=== PATIENT | female | born 1950 | race Caucasian/White ===

== ENCOUNTER → 2016-06-14 | Day surgery (SDC) | payer OTHER, MEDICARE ==
[2016-06-07 09:29] VITALS: Ht 148.6 cm; Wt 47.7 kg
[~2016-06-14] VITALS: Ht 148.6 cm; Wt 47.7 kg
[~2016-06-14] MED LIST: 500ML BSS 0.3ML EPI 1:1000PF IRRIG ONE; ACET-1256 PO; ACETAMINOPHEN 325 MG TAB PO PRN; AMVISC PLUS 0.8ML SYRINGE INT OCU ONE; ATROPINE SULFATE 0.1 MG/ML 5ML SYR IV PRN; BACL10TA PO; BIOT10TA2 PO; BSS FLUSH ONE; DOCU100C31 PO; ENDOCOAT 0.85ML SYRINGE INT OCU ONE; EpINEphrine INJ 1MG/ML AMP 1 MG/ML AMP ONE; LACTATED RINGER'S 1000ML 500 ML IV SCH; LIDOCAINE 4% OP SOLN DROP CHARGE ONE; LIDOCAINE 4% OP SOLN DROP CHARGE OPL SCH; LIDOCAINE HCL 1% MPF 2 ML VIAL ONE; LOSA1TAB38 PO; MIDAZOLAM HCL 1 MG/ML 2ML VIAL ONE; MIX: 4ML BSS 1ML EPI 1:1000 PF TOP ONE; MOXIFLOXACIN OPH SOLN PER DROP CHARGE ONE; MULT-506 PO; OFLO0.3S OP; OYST500T47 PO; PHENYLEPHRINE HCL 10% OP SOLN 5 ML BTL OPL ONE; POVIDONE-IODINE OP SOLN 30 ML BTL ONE; PRAM0.129 PO; PRED1SUS3 OPL; PRM/45 PO; PROPARACAINE 0.5% OP SOLN PER DROP CHARGE OPL SCH; PROPARACAINE HCL 0.5% OP SOLN 15 ML BTL OPL ONE; ROPI0.25 PO; SENN-61 PO; TOBRAMYCIN/DEXAMETHASONE OPH OINT PER APPLN CHARGE ONE; TRAZ50TA35 PO; [UNRECOGNIZED DRUG - CODE] PO
--- NOTE | 2016-06-14 08:41 | History & Physical Bridge - [place] ---
H&P Re-Evaluation Bridge Note: I have examined the patient, reviewed the History & Physical and in the interval since the performance of the History & Physical I have noted the following changes of clinical significance: No changes noted
[2016-06-14] MEDS: PHENYLEPHRINE HCL 2.5% OP SOLN PER DROP CHARGE OPL SCH ×3 (08:46→08:56)
[2016-06-14] MEDS: TROPICAMIDE 1% OP SOLN PER DROP CHARGE OPL SCH ×3 (08:47→08:57)
[2016-06-14] MEDS: CYCLOPENTOLATE HCL 1% OP SOLN PER DROP CHARGE OPL SCH ×3 (08:48→08:58)
[2016-06-14] MEDS: MOXIFLOXACIN OPH SOLN PER DROP CHARGE OPL SCH ×3 (08:49→08:59)
--- NOTE | 2016-06-14 10:14 | [facility] Post Operative Brief Note ---
Immediate Operative Summary Operative Date Jun 14, 2016. Pre-Operative Diagnosis Cataract Left Eye Post-Operative Diagnosis Same Procedure(s) Performed Left Cataract Phacoemulsification With Intraocular Lens Implant; Toric Lens Surgeon Dr. Palomo Weed Burner Surgeon(s) None Estimated Blood Loss None Findings left cataract Specimens None Complication(s) None Disposition
--- NOTE | 2016-06-14 10:18 | [facility] Operative Report ---
Operative Report Phaco with toric IOL DATE OF OPERATION: 06/14/16 PREOPERATIVE DIAGNOSIS: Senile nuclear cataract and astigmatism, left eye POSTOPERATIVE DIAGNOSIS: Senile nuclear cataract and astigmatism, left eye PROCEDURE PERFORMED: Femtosecond laser-assisted phacoemulsification with toric intraocular lens implantation, left eye SURGEON: Dr. Lewis Palomo ANESTHESIA: Topical with 1% intracameral lidocaine and monitored anesthesia care COMPLICATIONS: None DESCRIPTION OF PROCEDURE: After positively identifying the patient both verbally and by wristband in the preoperative area, the left eye was marked as the operative eye. Using a sterile marker, the 9:00 position on the limbus was marked, and using a Robomarker the 3 degree axis was marked after placing a drop of proparacaine. The patient was first brought to the laser room where the femtosecond laser was used to create the capsulotomy, lens fragmentation, and main wound. The patient was then brought back to the operating room by the anesthesia and nursing staff where they were given a drop of tetracaine and betadine into the operative eye. They were then sterilely prepped and draped in the standard fashion typical for ophthalmic surgery. Steri-strips were placed along the upper eyelids to keep the lashes back, and a lid speculum was placed into the operative eye. At this point, a documented time out was performed with members of the ophthalmology, nursing, and anesthesia staffs all agreeing upon the correct patient, correct location for surgery, correct procedure, and correct type and power of intraocular lens to be implanted. The microscope was then swung into position. Then, a paracentesis wound was made using a sideport blade. Then, in sequence, 1% preservative-free lidocaine followed by Endocoat viscoelastic was injected into the anterior chamber. Next , the main incision was opened with a Denver spatula, and then Utrata forceps were used to remove the capsulotomy. Hydrodissection was then performed with BSS on a flat-tip cannula. Next, the phacoemulsification handpiece was introduced into the eye and used to remove the nucleus in a [id number]-[id number] fashion. This was done without complication and then the irrigation-aspiration handpiece was introduced into the eye and used to remove all remaining cortical and epinuclear material. Amvisc was then injected into the anterior chamber as well as into the capsular bag and using the lens injector system, a IWP260 22.0 D lens, serial number [id number], and expiration date 01/2019 was injected into the capsular bag and rotated into the correct position to correctly line up with the toric marking. Next, the irrigation-aspiration handpiece was used to remove all remaining Amvisc. BSS was used to hydrate the main wound, and then BSS was injected into the paracentesis site to reach physiologic pressure and then the main wound was checked and found to be watertight. The patient was given drops of Vigamox and tobradex ointment into the operative eye, and then the surrounding area was cleaned and dried. A clear plastic shield was placed over the eye and the patient was then sat up and taken from the operating room by the anesthesia staff having tolerated the procedure well and suffering no complications. DISPOSITION: The patient was returned to the recovery room in stable condition. I attest to the content of the Intraoperative Record and any orders documented therein. Any exceptions are noted below.
--- NOTE | 2016-06-14 10:19 | Discharge Instructions-SurgCtr ---
Discharge Instructions Visit Reason for Visit: Cataract Left Eye Discharge Discharge Diagnosis / Problem: left cataract and astigmatism Discharge Goals Goal(s): Decrease discomfort, Improve function Activity Recommendations Activity Limitations: as noted below Anesthesia . Post Anesthesia Instructions: If you have had General Anesthesia or IV Sedation: * Do not drive today. * Resume driving when surgeon permits. * Do not make important decisions or sign legal documents today. * Call surgeon for: 1. Temperature elevations greater than 101 degrees F. 2. Uncontrollable pain. 3. Excessive bleeding. 4. Persistent nausea and vomiting. 5. Medication intolerance (nausea, vomiting or rash). * For nausea and vomiting use only clear liquids such as: tea, soda, bouillon until nausea subsides, then gradually increase diet as tolerated. * If you have any concerns or questions, call your surgeon's office. If physician is unavailable and it is an emergency, call 911 or go to the nearest emergency room. . Instructions / Follow-Up Instructions / Follow-Up ACTIVITY RECOMMENDATIONS: * Light activities. * You may walk outside, read, watch television. * You may notice redness on the white part of the eye and some blurry vision - this is normal. MEDICATIONS: Resume previous medications unless instructed otherwise by your surgeon. Start all eye drops at 12:30 pm today: * Eye drops (today): Prednisone - one drop in operative eye every 2 hours while awake Ofloxacin - one drop in operative eye every 2 hours while awake SPECIAL CARE INSTRUCTIONS: * Tape plastic shield over eye to sleep at night. Call your doctor at with any concerns or problems. FOLLOW UP VISIT: Follow-up with Dr Palomo at [facility] as scheduled. Diet Recommendations Home Diet: no limitations Procedures Procedures Performed: Left Cataract Phacoemulsification With Intraocular Lens Implant; Toric Lens Pending Studies Studies pending at discharge: no Medical Emergencies . Who to Call and When: Medical Emergencies: If at any time you feel your situation is an emergency, please call 911 immediately. . Non-Emergent Contact Non-Emergency issues call your: Surgeon . . "Provider Documentation" section prepared by Lewis Palomo.
--- NOTE | 2016-06-14 10:24 | Anesthesia Progress Nt - [facility] ---
Anesthesia Post Op Note Date & Time Jun 14, 2016 at 10:24 Vital Signs Pain Intensity: 0 Vital Signs Past 12 Hours Date Time Temp Pulse Resp B/P Pulse Ox O2 Delivery O2 Flow Rate FiO2 06/14/16 09:40 65 98 06/14/16 09:40 65 06/14/16 09:38 155/81 06/14/16 09:35 64 99 06/14/16 09:35 64 06/14/16 09:33 153/79 06/14/16 09:32 135/67 06/14/16 08:36 36.4 68 18 140/88 99 Room Air Notes Mental Status: alert / awake / arousable, participated in evaluation Pt Amnestic to Procedure: Yes Nausea / Vomiting: adequately controlled Pain: adequately controlled Airway Patency, RR, SpO2: stable & adequate BP & HR: stable & adequate Hydration State: stable & adequate Anesthetic Complications: no major complications apparent
[2016-06-14 10:27] VITALS: TEMP 36.5
[2016-06-14 10:43] VITALS: BP 131/81; PULSE 68; O2SAT 99
== END | disposition home or self-care (01) ==
LOC: X.SURG 08:19
PROVIDERS: ATTEND Ophthalmology
DX: H25.12 Age-related nuclear cataract, left eye (principal); H52.202 Unspecified astigmatism, left eye; H04.129 Dry eye syndrome of unspecified lacrimal gland; I10 Essential (primary) hypertension; G37.3 Acute transverse myelitis in demyelinating disease of central nervous system; H91.90 Unspecified hearing loss, unspecified ear; M41.20 Other idiopathic scoliosis, site unspecified; G25.81 Restless legs syndrome; H93.19 Tinnitus, unspecified ear; Z82.49 Family history of ischemic heart disease and other diseases of the circulatory system; Z83.518 Family history of other specified eye disorder; Z90.710 Acquired absence of both cervix and uterus; Z98.890 Other specified postprocedural states

== ENCOUNTER → 2016-06-28 | Day surgery (SDC) | payer OTHER, MEDICARE ==
[2016-06-26 11:54] VITALS: Ht 148.6 cm; Wt 47.7 kg
[~2016-06-28] VITALS: Ht 148.6 cm; Wt 47.7 kg
[~2016-06-28] MED LIST changes: +EpHEDrine SULFATE INJ 50 MG/ML AMP IV PRN; -LIDOCAINE 4% OP SOLN DROP CHARGE OPL SCH; +LIDOCAINE 4% OP SOLN DROP CHARGE OPR SCH; -PHENYLEPHRINE HCL 10% OP SOLN 5 ML BTL OPL ONE; +PHENYLEPHRINE HCL 10% OP SOLN 5 ML BTL OPR ONE; -PROPARACAINE 0.5% OP SOLN PER DROP CHARGE OPL SCH; +PROPARACAINE 0.5% OP SOLN PER DROP CHARGE OPR SCH; -PROPARACAINE HCL 0.5% OP SOLN 15 ML BTL OPL ONE; +PROPARACAINE HCL 0.5% OP SOLN 15 ML BTL OPR ONE; -TRAZ50TA35 PO
[2016-06-28] MEDS: PHENYLEPHRINE HCL 2.5% OP SOLN PER DROP CHARGE OPR SCH ×3 (08:50→09:00)
[2016-06-28] MEDS: TROPICAMIDE 1% OP SOLN PER DROP CHARGE OPR SCH ×3 (08:51→09:05)
[2016-06-28] MEDS: CYCLOPENTOLATE HCL 1% OP SOLN PER DROP CHARGE OPR SCH ×3 (08:52→09:06)
[2016-06-28] MEDS: MOXIFLOXACIN OPH SOLN PER DROP CHARGE OPR SCH ×3 (08:53→09:07)
--- NOTE | 2016-06-28 10:23 | [facility] Post Operative Brief Note ---
Immediate Operative Summary Operative Date Jun 28, 2016. Pre-Operative Diagnosis CATARACT RIGHT EYE Post-Operative Diagnosis Same Procedure(s) Performed Right Eye Femtosecond Laser Surgeon Dr. Palomo Road Passenger Firer Surgeon(s) None Estimated Blood Loss 0 mL Findings right cataract Specimens None Complication(s) None Disposition
[2016-06-28 10:24] VITALS: TEMP 36.3
--- NOTE | 2016-06-28 10:25 | [facility] Operative Report ---
Operative Report Date of Service Jun 28, 2016. Operative Report DATE OF OPERATION: 06/28/16 PREOPERATIVE DIAGNOSIS: Senile nuclear cataract and astigmatism, right eye POSTOPERATIVE DIAGNOSIS: Senile nuclear cataract and astigmatism, right eye PROCEDURE PERFORMED: Femtosecond assisted phacoemulsification with toric intraocular lens implantation, right eye SURGEON: Dr. Lewis Palomo ANESTHESIA: Topical with 1% intracameral lidocaine and monitored anesthesia care COMPLICATIONS: None DESCRIPTION OF PROCEDURE: After positively identifying the patient both verbally and by wristband in the preoperative area, the right eye was marked as the operative eye. Using a Robomarker, the 176 degree axis was marked after placing a drop of proparacaine. The patient was first brought to the laser room where the femtosecond laser was used to make the capsulotomy, lens fragmentation, and main incision. The patient was then brought back to the operating room by the anesthesia and nursing staff where they were given a drop of tetracaine and betadine into the operative eye. They were then sterilely prepped and draped in the standard fashion typical for ophthalmic surgery. Steri-strips were placed along the upper eyelids to keep the lashes back, and a lid speculum was placed into the operative eye. At this point, a documented time out was performed with members of the ophthalmology, nursing, and anesthesia staffs all agreeing upon the correct patient, correct location for surgery, correct procedure, and correct type and power of intraocular lens to be implanted. The microscope was then swung into position. Then, a paracentesis wound was made using a sideport blade. Then, in sequence, 1% preservative-free lidocaine followed by Endocoat viscoelastic was injected into the anterior chamber. Next , the main incision was opened with a Denver spatula, and Utrata forceps were used to remove the capsulotomy. Hydrodissection was then performed with BSS on a flat-tip cannula. Next, the phacoemulsification handpiece was introduced into the eye and used to remove the nucleus in a [id number]-lia-[id number] fashion. This was done without complication and then the irrigation-aspiration handpiece was introduced into the eye and used to remove all remaining cortical and epinuclear material. Amvisc was then injected into the anterior chamber as well as into the capsular bag and using the lens injector system, a ILH400 21.5 D lens, serial number [id number], and expiration date 07/2019 was injected into the capsular bag and rotated into the correct position to correctly line up with the toric marking. Next, the irrigation-aspiration handpiece was used to remove all remaining Amvisc. BSS was used to hydrate the main wound, and then BSS was injected into the paracentesis site to reach physiologic pressure and then the main wound was checked and found to be watertight after adding Resure sealant. The patient was given drops of Vigamox and tobradex ointment into the operative eye, and then the surrounding area was cleaned and dried. A clear plastic shield was placed over the eye and the patient was then sat up and taken from the operating room by the anesthesia staff having tolerated the procedure well and suffering no complications. DISPOSITION: The patient was returned to the recovery room in stable condition. I attest to the content of the Intraoperative Record and any orders documented therein. Any exceptions are noted below.
--- NOTE | 2016-06-28 10:27 | Discharge Instructions-SurgCtr ---
Discharge Instructions Visit Reason for Visit: Cataract Right Eye Discharge Discharge Diagnosis / Problem: right cataract Discharge Goals Goal(s): Decrease discomfort, Improve function Medications Stopped Medications Name(s): REQUIP- LAST TAKEN Sunday06/26/16 Activity Recommendations Activity Limitations: as noted below Anesthesia . Post Anesthesia Instructions: If you have had General Anesthesia or IV Sedation: * Do not drive today. * Resume driving when surgeon permits. * Do not make important decisions or sign legal documents today. * Call surgeon for: 1. Temperature elevations greater than 101 degrees F. 2. Uncontrollable pain. 3. Excessive bleeding. 4. Persistent nausea and vomiting. 5. Medication intolerance (nausea, vomiting or rash). * For nausea and vomiting use only clear liquids such as: tea, soda, bouillon until nausea subsides, then gradually increase diet as tolerated. * If you have any concerns or questions, call your surgeon's office. If physician is unavailable and it is an emergency, call 911 or go to the nearest emergency room. . Instructions / Follow-Up Instructions / Follow-Up ACTIVITY RECOMMENDATIONS: * Light activities. * You may walk outside, read, watch television. * You may notice redness on the white part of the eye and some blurry vision - this is normal. MEDICATIONS: Resume previous medications unless instructed otherwise by your surgeon. Start all eye drops at 12:30 pm today: * Eye drops (today): Prednisone - one drop in operative eye every 2 hours while awake Ofloxacin - one drop in operative eye every 2 hours while awake SPECIAL CARE INSTRUCTIONS: * Tape plastic shield over eye to sleep at night. Call your doctor at with any concerns or problems. FOLLOW UP VISIT: Follow-up with Dr Palomo at [facility] as scheduled. Diet Recommendations Home Diet: no limitations Procedures Procedures Performed: Right Eye Femtosecond Laser Pending Studies Studies pending at discharge: no Medical Emergencies . Who to Call and When: Medical Emergencies: If at any time you feel your situation is an emergency, please call 911 immediately. . Non-Emergent Contact Non-Emergency issues call your: Surgeon . . "Provider Documentation" section prepared by Lewis Palomo.
--- NOTE | 2016-06-28 10:41 | Anesthesia Progress Nt - [facility] ---
Anesthesia Post Op Note Date & Time Jun 28, 2016 at 10:41 Vital Signs Pain Intensity: 1 Vital Signs Past 12 Hours Date Time Temp Pulse Resp B/P Pulse Ox O2 Delivery O2 Flow Rate FiO2 06/28/16 10:24 36.3 99 16 132/86 99 Room Air 64 06/28/16 09:47 69 16 142/81 96 06/28/16 09:42 66 14 141/81 97 06/28/16 08:36 36.7 70 16 134/84 98 Room Air Notes Mental Status: alert / awake / arousable, participated in evaluation Pt Amnestic to Procedure: Yes Nausea / Vomiting: adequately controlled Pain: adequately controlled Airway Patency, RR, SpO2: stable & adequate BP & HR: stable & adequate Hydration State: stable & adequate Anesthetic Complications: no major complications apparent
[2016-06-28 10:44] VITALS: BP 129/83; O2SAT 99
== END | disposition home or self-care (01) ==
LOC: X.SURG 08:17
PROVIDERS: ATTEND Ophthalmology
DX: H25.11 Age-related nuclear cataract, right eye (principal); H52.201 Unspecified astigmatism, right eye; I10 Essential (primary) hypertension; G25.81 Restless legs syndrome; H91.90 Unspecified hearing loss, unspecified ear; K21.9 Gastro-esophageal reflux disease without esophagitis; Z90.710 Acquired absence of both cervix and uterus; Z90.89 Acquired absence of other organs; Z83.3 Family history of diabetes mellitus; Z82.49 Family history of ischemic heart disease and other diseases of the circulatory system; Z88.1 Allergy status to other antibiotic agents; Z88.2 Allergy status to sulfonamides; Z88.0 Allergy status to penicillin; Z88.8 Allergy status to other drugs, medicaments and biological substances; Z91.041 Radiographic dye allergy status; Z88.5 Allergy status to narcotic agent; Z91.013 Allergy to seafood; R01.1 Cardiac murmur, unspecified; M41.9 Scoliosis, unspecified; G62.9 Polyneuropathy, unspecified

== ENCOUNTER → 2016-09-06 | Outpatient (CLI) | payer OTHER, MEDICARE ==
[~2016-09-06] MED LIST changes: -500ML BSS 0.3ML EPI 1:1000PF IRRIG ONE; -ACETAMINOPHEN 325 MG TAB PO PRN; -AMVISC PLUS 0.8ML SYRINGE INT OCU ONE; -ATROPINE SULFATE 0.1 MG/ML 5ML SYR IV PRN; -BSS FLUSH ONE; -ENDOCOAT 0.85ML SYRINGE INT OCU ONE; -EpHEDrine SULFATE INJ 50 MG/ML AMP IV PRN; -EpINEphrine INJ 1MG/ML AMP 1 MG/ML AMP ONE; -LACTATED RINGER'S 1000ML 500 ML IV SCH; -LIDOCAINE 4% OP SOLN DROP CHARGE ONE; -LIDOCAINE 4% OP SOLN DROP CHARGE OPR SCH; -LIDOCAINE HCL 1% MPF 2 ML VIAL ONE; -MIDAZOLAM HCL 1 MG/ML 2ML VIAL ONE; -MIX: 4ML BSS 1ML EPI 1:1000 PF TOP ONE; -MOXIFLOXACIN OPH SOLN PER DROP CHARGE ONE; -PHENYLEPHRINE HCL 10% OP SOLN 5 ML BTL OPR ONE; -POVIDONE-IODINE OP SOLN 30 ML BTL ONE; -PROPARACAINE 0.5% OP SOLN PER DROP CHARGE OPR SCH; -PROPARACAINE HCL 0.5% OP SOLN 15 ML BTL OPR ONE; -TOBRAMYCIN/DEXAMETHASONE OPH OINT PER APPLN CHARGE ONE
--- NOTE | 2016-09-06 15:49 | MAMMOGRAPHY REPORT ---
BILATERAL DIGITAL SCREENING MAMMOGRAM WITH CAD: 09/06/2016 CLINICAL HISTORY: Routine screening. Patient has no complaints. TECHNIQUE: Current study was also evaluated with a Computer Aided Detection (CAD) system. Bilatera l CC and MLO views were obtained. COMPARISON: Comparison is made to exams dated: 08/30/2015 mammogram, 08/25/2014 mammogram, 05/21/2013 mammogram, 05/20/2012 mammogram, 05/19/2011 mammogram, and 05/17/2011 mammogram - [facility]. BREAST COMPOSITION: The tissue of both breasts is heterogeneously dense, which may obscure small ma sses. FINDINGS: No suspicious masses, calcifications, or areas of architectural distortion are noted in e ither breast. There has been no significant interval change compared to prior exams. Scattered bilat eral benign-appearing calcifications are not significantly changed. IMPRESSION: ACR BI-RADS CATEGORY 2: BENIGN There is no mammographic evidence of malignancy. A 1 year screening mammogram is recommended. The p atient will receive written notification of the results. Approximately 10% of breast cancers are not detected with mammography. A negative mammographic repor t should not delay biopsy if a clinically suggestive mass is present. Genevieve Mcneal M.D. ah/:09/06/2016 15:02:13 Second Shift Supervisor: Marcelino POWELL(R)(M), [facility] letter sent: Normal 1/2 BI-RADS Code: ACR BI-RADS Category 2: Benign
== END | disposition home or self-care (01) ==
LOC: C.MAMM 11:02
PROVIDERS: ATTEND Family Medicine
DX: Z12.31 Encounter for screening mammogram for malignant neoplasm of breast (principal)